=== PATIENT | male | born 1945 | race Caucasian/White ===

== ENCOUNTER 2022-10-11 19:17 | Emergency (ER) | payer BC, MEDICARE, OTHER ==
[~2022-10-11] VITALS: Ht 167.6 cm; Wt 94.2 kg
[~2022-10-11 19:17] MED LIST: ATOR20TA PO; DOCU-323 PO; HYDR12.5 PO; IXEK80SY3 IM; LISI-642 PO
[2022-10-11 20:07] LABS: BASOPHILS # (AUTO) 0.1 X10'3 (0-0.2); BASOPHILS % (AUTO) 0.5 % (0-1); EOSINOPHILS # (AUTO) 0.1 X10'3 (0-0.9); EOSINOPHILS % (AUTO) 1.1 % (0-6); HEMATOCRIT 45.5 % (42.0-52.0); HEMOGLOBIN 15.1 g/dl (14.0-17.9); LYMPHOCYTES # (AUTO) 1.8 X10'3 (1.1-4.8); LYMPHOCYTES % (AUTO) 13.3 % (21-51); MEAN CORPUSCULAR HEMOGLOBIN 31.6 PG (27.0-31.0); MEAN CORPUSCULAR HGB CONC 33.1 g/dL (33.0-36.5); MEAN CORPUSCULAR VOLUME 95.4 FL (78-98); MEAN PLATELET VOLUME 9.2 FL (7.4-10.4); MONOCYTES # (AUTO) 1.1 X10'3 (0-0.9); MONOCYTES % (AUTO) 8.7 % (2-12); NEUTROPHILS % (AUTO) 76.4 % (42-75); PLATELET COUNT 258 X10'3 (140-440); RED BLOOD COUNT 4.77 X10'6 (4.70-6.10); RED CELL DISTRIBUTION WIDTH 14.4 % (11.5-14.5); WHITE BLOOD COUNT 13.2 X10'3 (4.5-11.0)
[2022-10-11] MEDS ORDERED: ALLO100T15 PO (20:11)
[2022-10-11] MEDS ORDERED: ESCI-8 PO (20:11)
[2022-10-11] MEDS ORDERED: METF-1203 PO (20:11)
[2022-10-11] MEDS ORDERED: FINA5TAB11 PO (20:12)
[2022-10-11] MEDS ORDERED: TERA2CAP4 PO (20:15)
[2022-10-11] MEDS ORDERED: PREG25CA18 PO (20:15)
[2022-10-11] MEDS ORDERED: METO-395 PO (20:20)
[2022-10-11] MEDS ORDERED: BUDE10.2 (20:20)
[2022-10-11] MEDS ORDERED: FLUT16SP26 BOTHNARES (20:20)
[2022-10-11] MEDS ORDERED: BUSP10TA3 PO (20:20)
[2022-10-11 20:22] LABS: ALANINE AMINOTRANSFERASE 52 U/L (12-78); ALBUMIN 4.1 G/DL (3.4-5.0); ALBUMIN/GLOBULIN RATIO 1.1 (1.1-1.5); ALKALINE PHOSPHATASE 75 IU/L (46-116); ANION GAP 6 (8-16); ASPARTATE AMINO TRANSFERASE 29 U/L (10-37); BILIRUBIN,TOTAL 0.6 MG/DL (0.1-1.0); BLOOD UREA NITROGEN 13 MG/DL (7-18); CALCIUM 10.3 MG/DL (8.5-10.1); CHLORIDE 100 MMOL/L (99-107); CREATININE 0.93 MG/DL (0.60-1.10); ETHANOL < 0.010 GM/DL (0.0-0.010); GLUCOSE 118 MG/DL (70-104); POTASSIUM 3.9 MMOL/L (3.5-5.1); SODIUM 136 MMOL/L (135-145); TOTAL CARBON DIOXIDE 30.4 MMOL/L (24-32); TOTAL PROTEIN 7.7 G/DL (6.4-8.2); eGFR 79 ML/MIN
[2022-10-11 20:39] LABS: URINE AMPHETAMINE SCREEN NEGATIVE (Neg); URINE BARBITUATE SCREEN NEGATIVE (Neg); URINE BENZODIAZEPINES SCREEN NEGATIVE (Neg); URINE CANNABINOID SCREEN NEGATIVE (Neg); URINE COCAINE SCREEN NEGATIVE (Neg); URINE METHADONE SCREEN NEGATIVE (Neg); URINE OPIATE SCREEN NEGATIVE (Neg); URINE PHENCYCLIDINE SCREEN NEGATIVE (Neg)
[2022-10-11] MEDS ORDERED: IXEKIZUMAB 80 MG/ML IM SCH (20:55)
[2022-10-11] MEDS: Terazosin 1mg capsule PO SCH (21:00)
[2022-10-11] MEDS: busPIRone 5mg tablet PO SCH (21:00)
[2022-10-11] MEDS ORDERED: metFORMIN 500mg tablet PO ONE (21:25)
[2022-10-11] MEDS ORDERED: QUEtiapine 25mg tablet PO ONE (22:40)
[2022-10-12] MEDS: albuterol 2.5 MG/3 ML nebule NEB SCH ×4 (02:47→21:00)
--- NOTE | 2022-10-12 06:49 | NUR ---
Received patient from main ED to OF bed #21. Pt is resting now, respirations even and unlabored. at bedside.
[2022-10-12 07:49] LABS: CLARITY,URINE SLIGHTLY CLOUDY (Clear); COLOR,URINE YELLOW (Yellow); GLUCOSE, URINE NEGATIVE (Neg); KETONES,URINE NEGATIVE (Neg); LEUKOCYTE ESTERASE ,URINE NEGATIVE (Neg); NITRITES, URINE NEGATIVE (Neg); OCCULT BLOOD,URINE NEGATIVE (Neg); PH,URINE 5.5 (4.8-8.0); PROTEIN,URINE NEGATIVE (Neg); UA COLLECTION TYPE CLN CATCH MIDSTREAM; UROBILINOGEN,URINE 0.2 E.U/dL (0.2-1.0)
[2022-10-12 07:50] LABS: MUCUS STRANDS MODERATE /LPF (Neg); SQUAMOUS EPITHELIAL CELL,UR MODERATE /LPF (FEW)
[2022-10-12 07:51] LABS: BACTERIA,URINE FEW /HPF (Neg); RBC,URINE 0-2 /HPF (0-2); WBC,URINE 0-4 /HPF (0-4)
[2022-10-12] MEDS ORDERED: QUEtiapine 25mg tablet PO PRN ×2 (08:30→17:25)
[2022-10-12] MEDS: budesonide 0.5mg/2ml UD nebule IH SCH ×2 (08:40→21:00)
[2022-10-12] MEDS: fluticasone nasal spray 16GM bottle NS SCH (08:55)
[2022-10-12] MEDS: busPIRone 5mg tablet PO SCH ×3 (08:56→20:20)
[2022-10-12] MEDS: finasteride 5mg tablet PO SCH (08:57)
[2022-10-12] MEDS: atorvastatin 20mg tablet PO SCH (08:57)
[2022-10-12] MEDS: allopurinol 300 MG tablet PO SCH (08:57)
[2022-10-12] MEDS: ESCITALOPRAM OXALATE 5 MG TABLET PO SCH (08:57)
[2022-10-12] MEDS: pregabalin 25mg capsule PO SCH (08:57)
[2022-10-12] MEDS: metFORMIN 500mg tablet PO SCH ×2 (08:57→20:21)
--- NOTE | 2022-10-12 09:00 | NUR ---
Patient awake sitting up talking to his . Pt was compliant with morning medications. Pt presents depressed "I just need help with my medications." Pt requested PRN for anxiety, received order for Seroquel 25 mg. Pt reports and confirms that Ativan causes a pardoxyl reaction. reports he is calm for a short time then wakes and is "highly agitated." Pt currently denies SI/HI, A/VH. Pt reports his SI is r/t his increased anxiety. Pt has a follow up appointment with PCP on 10/14/22.
[2022-10-12] MEDS: lisinopril 20mg tablet PO SCH (09:06)
[2022-10-12] MEDS: metoprolol succinate 25mg (24-HOUR) SR. Tablet PO SCH (09:06)
--- NOTE | 2022-10-12 11:00 | NUR ---
[facility] was at bedside. Pt does not meet criteria for DTS, DTO, possibly GD. Pt has a good support system and requires a medication. Pt and pt's would prefer to have a 5150 written. Pt's is looking into [facility] as voluntary, pt will be able to stay here until a safe discharge plan is reached. Pt's condition is r/t increased anxiety. Pt is A&O x 4. Pt is calm, PRN Seroqel 25 mg is effective. Will continue to monitor. Addendum: 10/12/22 at 1226 by ALEXA Pt came to hospital voluntary.
--- NOTE | 2022-10-12 12:26 | NUR ---
Pt's and daughter are at bedside.
--- NOTE | 2022-10-12 13:39 | NUR ---
Pt up to the bathroom, ambulated independently. Daughter at bedside. Pt is calm.
--- NOTE | 2022-10-12 14:40 | NUR ---
MOVED PT TO BD 22 . PT W. FAMILY AT BEDSIDE.
--- NOTE | 2022-10-12 15:30 | NUR ---
Pt in and out of napping, talking to and daughter. Addendum: 10/12/22 at 2226 by ALEXA Pt c/o stomach pain r/t to constipation. LBM documented was 10/11/22. Pt has normal BS x 4, supple abdomen, no pain on palpation. Prune juice administered. Will continue to monitor.
--- NOTE | 2022-10-12 16:56 | NUR ---
Pt ambulated to bathroom then returned to bed. Pt c/o anxiety and requested medication. Pt encouraged to move around unit as he has been in bed a good portion of the shift. Food Editor overheard pt talking to "You will have the rest of your life without me." Pt presents with depressed affect, but is compliant with walking, gait is steady.
--- NOTE | 2022-10-12 17:24 | NUR ---
Spoke with ANTHONY Oquendo regarding anti-anxiety medication for patient. Seroquel 25mg was a little to sedating for patient in the afternoon. New order for Seroquel 12.5 mg for agitation and Atarax 25 mg q6h for anxiety.
[2022-10-12] MEDS: hydrOXYzine 25 MG tablet PO PRN (17:31)
--- NOTE | 2022-10-12 17:38 | NUR ---
Administered PRN Atarax 25mg for pt's anxiety. at bedside, compliant with vitals.
--- NOTE | 2022-10-12 19:30 | NUR ---
Pt sitting up in bed talking to at bedside. Pt reports PRN Atarax was not effective in decreasing his anxiety. Pt's requested powder for under his pannus. Will talk provider.
[2022-10-12] MEDS: Terazosin 1mg capsule PO SCH (20:20)
[2022-10-12] MEDS: nystatin 15 GM powder TP SCH (20:45)
[2022-10-12] MEDS ORDERED: QUEtiapine 25mg tablet PO ONE (21:00)
[2022-10-12] MEDS ORDERED: QUEtiapine 25mg tablet PO SCH (21:00)
--- NOTE | 2022-10-12 21:57 | NUR ---
Pt resting comfortably, with in recliner at bedside. Respirations even and unlabored. Received order for Nystatin powder, which he applied earlier. Pt was sleeping for 2100 breathing treatment. Pt's lungs were clear at 1900 assessment by telegraphic typewriter repairer. Will continue to monitor.
--- NOTE | 2022-10-13 00:29 | NUR ---
Pt appears to be sleeping restfully, respirations even and unlabored.
--- NOTE | 2022-10-13 02:45 | NUR ---
Pt ambulated to bathroom. Respiratory came in and gave breathing tx to patient. Pt calm.
[2022-10-13] MEDS: albuterol 2.5 MG/3 ML nebule NEB SCH ×2 (02:46→08:51)
--- NOTE | 2022-10-13 05:41 | NUR ---
Pt awake getting vitals, requested anti-anxiety. Pt's is at bedside, will call [facility] this morning for an ETA.
[2022-10-13] MEDS: hydrOXYzine 25 MG tablet PO PRN (05:42)
[2022-10-13 05:51] VITALS: BP_DIAS 77
[2022-10-13] MEDS: fluticasone nasal spray 16GM bottle NS SCH (08:09)
[2022-10-13] MEDS: busPIRone 5mg tablet PO SCH (08:09)
[2022-10-13] MEDS: atorvastatin 20mg tablet PO SCH (08:10)
[2022-10-13 08:12] VITALS: BP_SYST 121
[2022-10-13] MEDS: lisinopril 20mg tablet PO SCH (08:12)
[2022-10-13] MEDS: finasteride 5mg tablet PO SCH (08:12)
[2022-10-13] MEDS: nystatin 15 GM powder TP SCH (08:13)
[2022-10-13] MEDS: allopurinol 300 MG tablet PO SCH (08:21)
[2022-10-13] MEDS: metFORMIN 500mg tablet PO SCH (08:21)
[2022-10-13] MEDS: pregabalin 25mg capsule PO SCH (08:21)
[2022-10-13] MEDS: metoprolol succinate 25mg (24-HOUR) SR. Tablet PO SCH (08:21)
[2022-10-13] MEDS: ESCITALOPRAM OXALATE 5 MG TABLET PO SCH (08:21)
[2022-10-13] MEDS: budesonide 0.5mg/2ml UD nebule IH SCH (08:51)
--- NOTE | 2022-10-13 08:55 | NUR ---
Pt. given Seoquel 12.5 mg for anxiety, planning on leaving to self admit to [facility] in [place].
== END 2022-10-13 09:33 | disposition home or self-care (01) ==
LOC: ER 19:17
DX: F41.9 Anxiety disorder, unspecified (principal); Z20.822 Contact with and (suspected) exposure to COVID-19; R45.851 Suicidal ideations; F41.0 Panic disorder [episodic paroxysmal anxiety]; J44.9 Chronic obstructive pulmonary disease, unspecified; E11.9 Type 2 diabetes mellitus without complications
CPT/HCPCS: 36415; 80053; 80305; 80320; 81001; 82948; 84443; 85025; 87811; 94640; 99285; J7030; Q0177